=== PATIENT | male | born 1980 | race Caucasian/White ===

== ENCOUNTER → 2016-11-23 | Outpatient (CLI) | payer BC | LOC: CARD 07:13 | PROVIDERS: ATTEND Internal Medicine Cardiovascular Disease | DX: I45.6 Pre-excitation syndrome (principal); R00.2 Palpitations | CPT/HCPCS: 93225; 93226 ==

== ENCOUNTER → 2018-04-29 | Outpatient (CLI) | payer BC | LOC: CARD 13:54 | PROVIDERS: ATTEND Internal Medicine Interventional Cardiology | DX: R01.1 Cardiac murmur, unspecified (principal); I49.3 Ventricular premature depolarization | CPT/HCPCS: 93306 ==